=== PATIENT | female | born 1965 | race Caucasian/White ===

== ENCOUNTER 2021-01-18 15:24 | Emergency (ER) | payer OTHER ==
[2021-01-18 17:40] LABS: Urine Blood Trace-lysed (Negative); Urine Glucose Negative (Negative); Urine Protein Negative (Negative); Urine Specific Gravity <=1.005 (1.005-1.030); Urine pH 6.5 (5.0-7.0)
[2021-01-18 18:13] LABS: Potassium 3.9 mmol/L (3.5-5.1)
--- NOTE | 2021-01-18 18:43 | RAD REPORT ---
EXAM DESCRIPTION: CT - Head Brain Wo Cont - 01/18/2021 6:21 pm CLINICAL HISTORY: HEADACHE, frontal region, history of subdural hematoma COMPARISON: CT angio head same date, no remote imaging TECHNIQUE: Axial 5 mm thick images of the head were obtained without IV contrast. All CT scans are performed using dose optimization technique as appropriate and may include automated exposure control or mA/KV adjustment according to patient size. FINDINGS: No intracranial hemorrhage, mass, edema or shift of mid-line structures. No acute infarcti on changes seen. No abnormal extra-axial fluid collections. Ventricles are normal. Mastoid air cells and visualized portions of the paranasal sinuses are clear. No acute bony findings. Right frontal craniotomy postsurgical changes are noted. IMPRESSION: Negative non-contrast CT head examination for acute finding.
--- NOTE | 2021-01-18 18:47 | RAD REPORT ---
EXAM DESCRIPTION: CT - Head angio - 01/18/2021 6:21 pm CLINICAL HISTORY: right sided headache TECHNIQUE: During dynamic enhancement using nonionic IV contrast, axial 1 millimeter thick images of the head were obtained. Sagittal and axial reconstruction images were generated using MIP technique and reviewed. All CT scans are performed using dose optimization technique as appropriate and may include automated exposure control or mA/KV adjustment according to patient size. COMPARISON: CT head same date FINDINGS: No aneurysm or vascular malformation identified. Major venous sinuses are patent. No stenosis, named branch occlusion, vasculitis or other significant vascular finding identifiable. IMPRESSION: Negative CT angio head examination.
[2021-01-18] MEDS ORDERED: METOCLOPRAMIDE 10 MG/2mL INJ ONE ×2 (19:56→20:09)
[2021-01-18] MEDS ORDERED: NA CHLORIDE 0.9% 500 ML ONE (19:56)
--- NOTE | 2021-01-18 20:07 | ER ---
Nurse's Notes [facility] Name: Laxmi Laird Age: 55 yrs Sex: Female : 1965 Arrival Date: 01/18/2021 Time: 15:27 Bed 19 Private MD: Diagnosis: Headache Presentation: 01/18 16:14 Chief complaint: Chief complaint: Patient states: "yesterday I was walking and I aa5 stumbled but didn't fall but I got a pain on the right side of my head and it went away". Pt states "I woke up with a slight headache today and I've been so tired". 16:17 Coronavirus screen: At this time, the client does not indicate any symptoms associated aa5 with coronavirus-19. Ebola Screen: No symptoms or risks identified at this time. Initial Sepsis Screen: Does the patient meet any 2 criteria? No. Patient's initial sepsis screen is negative. Does the patient have a suspected source of infection? No. Patient's initial sepsis screen is negative. Risk Assessment: Do you want to hurt yourself or someone else? Patient reports no desire to harm self or others. Onset of symptoms was January 17, 2021. 16:17 Acuity: MAZIN 2 aa5 16:17 Method Of Arrival: Ambulatory aa5 Triage Assessment: 20:17 Pain: Pain currently is 2 out of 10 on a pain scale. Pain began 2-3 days ago. cc4 20:17 General: Appears in no apparent distress. Behavior is calm, cooperative. cc4 20:17 Headache History: The patient has had previous headaches and this one is less severe cc4 than previous episodes. Pain: Complains of pain in head Pain does not radiate. Pain currently is 2 out of 10 on a pain scale. Quality of pain is described as aching, Pain began 2-3 days ago. 20:17 Pain: Also complains of Increased headache with applied pressure plantar surface right cc4 foot. 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 - Social history:: Smoking status: Patient denies any tobacco usage or history of. Screenin:52 Abuse screen: Denies threats or abuse. Nutritional screening: No deficits noted. sl2 Tuberculosis screening: No symptoms or risk factors identified. Fall Risk No fall in past 12 months (0 pts). No secondary diagnosis (0 pts). No IV (0 pts). Ambulatory Aid- Crutches/Cane/Walker (15 pts). Gait- Normal/Bed Rest/Wheelchair (0 pts) Mental Status- Oriented to own ability (0 pts). Total Martinez Fall Scale indicates Low Risk Score (25-44 pts). Side Rails Up X 2 Placed close to Nursing Station 1:1 attendant Assigned to Pt. Family Present and informed to notify staff if they need to leave bedside. Assessment: 16:52 Reassessment: Patient states as she was walking yesterday she tripped on uneven sl2 pavement but did not fall, simultaneously as she tripped she had a sharp severe pain to the right side of her head which lasted approximately 1 minute which then faded away, states for the rest of the evening felt tired and lethargic and slept for 12 hours which is against her normal sleep routine of 6 hours. Today feels lethargic, states today she stepped on a dog toy and felt same sensation to the right side of her head, she denies nausea, denies any recent head injury. 16:52 Pain: Denies pain. Neuro: Reports headache in right frontal area, intermittent - denies sl2 pain at this time. Neuro: Level of Consciousness is awake, alert, obeys commands, Oriented to person, place, time, situation, Appropriate for age Automatic Folder Seamer are equal bilaterally Moves all extremities. Full function Gait is steady, Speech is normal, Facial symmetry appears normal. Cardiovascular: No deficits noted. Reports. Respiratory: No deficits noted. Reports. Respiratory: Airway is patent Trachea midline Respiratory effort is even, unlabored, Respiratory pattern is regular, symmetrical, Breath sounds are clear bilaterally. GI: No deficits noted. No signs and/or symptoms were reported involving the gastrointestinal system. : No deficits noted. No signs and/or symptoms were reported regarding the genitourinary system. EENT: No deficits noted. No signs and/or symptoms were reported regarding the EENT system. Derm: No deficits noted. No signs and/or symptoms reported regarding the dermatologic system. Musculoskeletal: No deficits noted. No signs and/or symptoms reported regarding the musculoskeletal system. Reports feeling tired and lethargic. 20:00 Reassessment: Patient appears in no apparent distress at this time. IV NS hung to cc4 saline lock left AC \\T\\ infusing \\T\\ bolus rate with no s/sx's of infiltration noted of site; reglan 20 mg given slow IVP; reports headache has decreased to 2/10 on pain scale. 20:17 Reassessment: Requesting to stop iv fluids \\T\\ reports wanting to go home; IV dc'd left cc4 AC, bhavik. well; VSS; NAD. Vital Signs: 16:17 BP 147 / 90; Pulse 85; Resp 18 S; Temp 98.0(TE); Pulse Ox 100% on R/A; Weight 86.18 kg aa5 (R); Height 6 ft. 0 in. (182.88 cm) (R); Pain 2/10; 20:17 BP 131 / 73; Pulse 88; Resp 20; Temp 97.9; Pulse Ox 100% on R/A; cc4 16:17 Body Mass Index 25.77 (86.18 kg, 182.88 cm) aa5 ED Course: 15:27 Patient arrived in ED. ds1 15:42 Wolfgang Jewell PA is PHCP. jmm 15:42 Meng Newberry MD is Attending Physician. jmm 16:14 Arm band placed on. aa5 16:20 Triage completed. aa5 16:52 Patient has correct armband on for positive identification. Placed in gown. Bed in low sl2 position. Call light in reach. Side rails up X2. Adult w/ patient. 17:05 EKG done, by ED staff, reviewed by Wolfgang COMBS. gd 17:10 Jessica Cintron, RN is Primary Nurse. sl2 17:30 Initial lab(s) drawn, by me, sent to lab. em1 17:30 Inserted saline lock: 20 gauge in left antecubital area, using aseptic technique. Blood kj1 collected. 17:43 Urine obtained. urine done by Alex Matamoros. ld1 18:21 CT Head Brain wo Cont In Process Unspecified. EDMS 18:21 CT Head Angio In Process Unspecified. EDMS 20:05 Elías Dasilva MD is Referral Physician. jmm 20:05 Ignacio Soares MD is Referral Physician. [facility] 20:17 No provider procedures requiring assistance completed. cc4 20:17 IV discontinued, intact, bleeding controlled, No redness/swelling at site. Pressure cc4 dressing applied. Administered Medications: 20:00 Drug: NS 0.9% 500 ml Route: IV; Rate: bolus; Site: left antecubital; sl2 20:17 Follow up: IV Status: Order to discontinue infusion; IV Intake: 100ml cc4 20:00 Drug: Reglan (metoCLOPramide) 20 mg Route: IVP; Site: left antecubital; sl2 20:17 Follow up: Response: No adverse reaction cc4 Intake: 20:17 IV: 100ml; Total: 100ml. cc4 Outcome: 20:06 Discharge ordered by MD. [facility] 20:17 Discharged to home with . cc4 20:17 Condition: improved 20:17 Discharge instructions given to patient, Instructed on discharge instructions, follow up and referral plans. Demonstrated understanding of instructions, follow-up care. 20:31 Patient left the ED. sl2 Signatures: Dispatcher [employer] EDMS Wolfgang Jewell PA PA [facility] Norma Mack dsAleksey Angela em1 Alyce Quick, RN RN almas5 Sunni Prince kj1 Yris Leyva RN RN ld1 Adriane Ramirez, RN RN cc4 Ronald Matamoros Sophia, RN RN sl2 Corrections: (The following items were deleted from the chart) 16:16 15:49 Arm band placed on aa5 aa5 16:20 16:14 Chief complaint: aa5 aa5 17:44 17:43 Urine obtained. ld1 ld1 17:50 17:30 Inserted saline lock: 20 gauge in left antecubital area, using aseptic technique. kj1 Blood collected. em1 17:50 17:49 Initial lab(s) drawn, by me, sent to lab. kj1 kj1
--- NOTE | 2021-01-18 20:07 | EDPHYS ---
Physician Documentation [facility] Name: Laxmi Laird Age: 55 yrs Sex: Female : 1965 Arrival Date: 01/18/2021 Time: 15:27 Bed 19 Private MD: ED Physician Meng Newberry HPI: 01/18 16:19 This 55 yrs old Female presents to ER via Unassigned with complaints of jmm Headache. 16:19 The patient complains of pain to the forehead. Onset: The symptoms/episode jmm began/occurred acutely, 1 day(s) ago. Associated signs and symptoms: Pertinent positives: malaise, Pertinent negatives: fever, neck stiffness, vomiting. Is a 55-year-old female with history of subdural hematoma that presents emerged department with complaints of acute onset right-sided headache which occurred while she was walking and tripped. Denies hitting her head. Patient complains of a fogginess type sensation since the beginning of the headache. Denies neck stiffness, fever, vomiting. . 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 - Social history:: Smoking status: Patient denies any tobacco usage or history of. ROS: 16:19 Cardiovascular: Negative for chest pain, palpitations, and edema, Respiratory: Negative jmm for shortness of breath, cough, wheezing, and pleuritic chest pain. 16:19 Constitutional: Positive for malaise. 16:19 Neuro: Positive for headache. 16:19 All other systems are negative. Exam: 16:19 Constitutional: This is a well developed, well nourished patient who is awake, alert, jmm and in no acute distress. Head/Face: atraumatic. Eyes: EOMI, no conjunctival erythema appreciated ENT: Moist Mucus Membranes Neck: Trachea midline, Supple Chest/axilla: Normal chest wall appearance and motion. Cardiovascular: Regular rate and rhythm. No edema appreciated Respiratory: Normal respirations, no respiratory distress appreciated Abdomen/GI: Non distended, soft Back: Normal ROM Skin: General appearance color normal 16:19 Musculoskeletal/extremity: ROM: intact in all extremities. 16:19 Skin: Appearance: Color: normal in color. 16:19 Neuro: Motor: is normal. 16:19 Psych: Behavior/mood is pleasant, cooperative. Vital Signs: 16:17 BP 147 / 90; Pulse 85; Resp 18 S; Temp 98.0(TE); Pulse Ox 100% on R/A; Weight 86.18 kg aa5 (R); Height 6 ft. 0 in. (182.88 cm) (R); Pain 2/10; 20:17 BP 131 / 73; Pulse 88; Resp 20; Temp 97.9; Pulse Ox 100% on R/A; cc4 16:17 Body Mass Index 25.77 (86.18 kg, 182.88 cm) aa5 MDM: 16:16 Patient medically screened. [facility] 20:05 Data reviewed: vital signs, nurses notes. Counseling: I had a detailed discussion with [facility] the patient and/or guardian regarding: the historical points, exam findings, and any diagnostic results supporting the discharge/admit diagnosis, lab results, radiology results, the need for outpatient follow up, to return to the emergency department if symptoms worsen or persist or if there are any questions or concerns that arise at home. Refusal of service: The patient/guardian displays adequate decision making capability and despite a detailed discussion of alternatives, benefits, risks, and consequences refuses: Lumbar Puncture procedure. 01/18 16:18 Order name: BMP; Complete Time: 18:26 [facility] 01/18 17:40 Order name: Urine Dipstick-Ancillary; Complete Time: 17:45 [facility] 01/18 16:18 Order name: CT Head Brain wo Cont; Complete Time: 18:53 [facility] 01/18 16:18 Order name: CT Head Angio; Complete Time: 18:53 [facility] 01/18 16:18 Order name: Saline Lock; Complete Time: 17:48 [facility] Administered Medications: 20:00 Drug: NS 0.9% 500 ml Route: IV; Rate: bolus; Site: left antecubital; sl2 20:17 Follow up: IV Status: Order to discontinue infusion; IV Intake: 100ml cc4 20:00 Drug: Reglan (metoCLOPramide) 20 mg Route: IVP; Site: left antecubital; sl2 20:17 Follow up: Response: No adverse reaction cc4 Disposition Summary: 01/18/21 20:06 Discharge Ordered Location: Home [facility] Condition: Stable [facility] Diagnosis - Headache [facility] Followup: [facility] - With: Elías Dasilva MD - When: 2 - 3 days - Reason: Recheck today's complaints, Continuance of care, Re-evaluation by your physician Followup: [facility] - With: Ignacio Soares MD - When: 2 - 3 days - Reason: Recheck today's complaints, Continuance of care, Re-evaluation by your physician Discharge Instructions: - Discharge Summary Sheet [facility] - General Headache Without Cause [facility] Forms: - Medication Reconciliation Form [facility] - Thank You Letter [facility] - Antibiotic Education [facility] - Prescription Opioid Use [facility] Addendum: 01/21/2021 19:06 Co-signature as Attending Physician, Meng hare Signatures: Dispatcher [employer] EDMeng Perez MD MD pkl Mickail, Joel, PA PA [facility] Alyce Quick, RN RN aa5 Jessica Cintron RN RN sl2 Adriane Ramirez RN cc4
[2021-01-18 21:17] VITALS: BP 147/90; TEMP 98; O2SAT 100
--- NOTE | 2021-01-21 20:46 | EKG ---
Test Date: 2021-01-18 Test Time: 16:56:26 Internal Review And Audit Compliance: LIZA MEASUREMENT RESULTS: Intervals: Rate: 72 VT: 132 QRSD: 96 QT: 414 QTc: 453 [place]: P: 26 VT: 132 QRS: 56 T: 60 INTERPRETIVE STATEMENTS: Normal sinus rhythm Normal ECG No previous ECG available for comparison Electronically Signed On 01-21-21 20:36:08 REGULATOR PIN INSERTER by Bartolo Ureña
--- OUTSIDE RECORDS SUMMARY | 2021-01-22 18:15 | XMS REPORT | Continuity of Care Document ---
:1965 Author Organization [facility] t Address [address] [place] [address] Care Team Providers Name Role Phone MAISHA WAY Primary Care Physician Unavailable OLMAN LIMON Attending Clinician Unavailable OLMAN LIMON Attending Clinician Unavailable Doctor Unassigned, Name Attending Clinician Unavailable Yunier Way Attending Clinician Pob1, Care Clinic Attending Clinician Unavailable Anene SDV PILOT/NAVIGATOR/DDS OPERATOR Attending Clinician ANENE Attending Clinician Unavailable Payers Payer Name Policy Type Policy Number Effective Date Expiration Date S ource Problems Condition Condition Condition Status Onset Resolution Last Treating Co mments Source Name Details Category Date Date Treatment Clinician Date Acute URI Acute URI Disease Active 2020-0 Uni vers 7-30 ity of 00:: [place] 00 [facility] Cough Cough Disease Active 2020- Univers 7-30 ity of 00:: [place] 00 [facility] Allergies, Adverse Reactions, Alerts Allergy Allergy Status Severity Reaction(s) Onset Inactive Treating Comm ents Source Name Type Date Date Clinician HYDROCOD DRUG Active HYPERTENSION 2019-0 Un imani ONE INGREDI 7-30 ity of 00:00: [place] 00 [facility] Hydrocod Propensi Active Hypertension 2020-0 Univers one ty to 7-30 ity of adverse 00:00: [place] reaction 00 Medical s Branch NO KNOWN Drug Active Univers ALLERGIE Class ity of S [facility] Social History Social Habit Start Date Stop Date Quantity Comments Source Tobacco use and 2019-10-09 2019-10-09 Never used [facility] Amadix [facility] exposure 00:00:00 00:00:00 Medical Siler Sex Ass[birth year] At [birth year] [facility] 00:00:00 00:00:00 Medical Branch Smoking Status Start Date Stop Date Source Unknown if ever smoked [facility] Never smoker [facility] Medications Ordered Filled Start Stop Current Ordering Indication Dosage Frequency Signature Comments Components Source Medication Medication Date Date Medication? Clinician (SIG) Name Name benzonatate 2020-0 Yes [id number] 100mg Take 1 Univers (TESSALON 7-30 capsule [facility]) 100 00:00: mouth 3 Marc as mg capsule 00 (three) Medica l times Branch daily as needed for Cough. benzonatate 2020-0 Yes [id number] 100mg Take 1 Univers (TESSALON 7-30 capsule by itAmadix Vedicis) 100 00:00: mouth 3 Marc as mg capsule 00 (three) Medica l times Branch daily as needed for Cough. benzonatate 2020-0 Yes [id number] 100mg Take 1 Univers (TESSALON 7-30 capsule by [facility] 100 00:00: mouth 3 Marc as mg capsule 00 (three) Medica l times Branch daily as needed for Cough. Vital Signs Vital Name Observation Time Observation Value Comments Source Systolic blood 2019-10-09 18:06:00 137 mm[Hg] [facility] Diastolic blood 2019-10-09 18:06:00 83 mm[Hg] [facility] [place] Heart rate 2019-10-09 18:06:00 99 /min [facility] Body temperature 2019-10-09 18:06:00 36.89 Amelia [facility] Respiratory rate 2019-10-09 18:06:00 18 /min [facility] Body height 2019-10-09 18:06:00 182.9 cm [facility] Body weight 2019-10-09 18:06:00 90.719 kg [facility] BMI 2019-10-09 18:06:00 27.12 kg/m2 [facility] Oxygen saturation in 2019-10-09 18:06:00 99 /min [facility] Arterial blood by [facility] Pulse oximetry Branch Procedures Procedure Date / Time Performed Performing Clinician [facility] e REFERRAL- 2021-01-19 06:01:00 [facility] REQUEST/RESPONSE Name Medical Branch Encounters Start End Encounter Admission Attending Care Care Encounter Source Date/Time Date/Time Type Type Clinicians Facility Department ID 2021-01-28 2021-01-28 Outpatient R ASHLYKALA [facility] [id number] Univers 15:00:00 15:00:00 KALA LIMON [id number] ity of [facility] 2021-01-19 2021-01-19 Orders Doctor MICHAEL [id number] Univers 00:00:00 00:00:00 Only Unassigned, DURAN [id number] ity of [place] [facility] [id number] Marc as [phone] [facility] 009 [place] 2019-10-10 2019-10-[address] [id number] Univers 00:00:00 00:00:00 Maisha GARZON [id number] it y of HOSPITAL [id number] Marc as [phone] [facility] 019 [place] 2019-10-09 2019-10-09 Urgent Pob1, Acute Care Clinic [facility] [id number] Univers 12:57:20 13:17:20 [place] Stevens [facility] [id number] ity of [place] [id number] Marc as Professio [phone] [address] Office [address] 2019-10-09 2019-10-09 Outpatient Brady PARHAM [facility] [id number] Univers 13:00:00 13:00:00 [place] jesusy [facility] [place] 2019-10-09 2019-10-09 Letter Doctor MICHAEL [id number] Univers 00:00:00 00:00:00 (Out) Unassigned, DURAN [id number] ity of [place] [facility] [id number] Marc as [phone] [address] 2019-10-09 2019-10-09 Letter Doctor RODRIGUEZ [id number] Univers 00:00:00 00:00:00 (Out) Unassigned, DURAN [id number] ity of [place] [facility] [id number] Marc as [phone] [facility] 044 Branch Results This patient has no known results.
== END 2021-01-18 20:31 | disposition home or self-care (01) ==
LOC: ER 15:24
DX: R51.9 Headache, unspecified (principal); Z88.6 Allergy status to analgesic agent
CPT/HCPCS: 93005; 80048; 36415; 82565; 81003; 70450; 70496; 96374; 99284; Q9967; J2765 ×2; J7040